=== PATIENT | male | born 1995 | race African-American/Black ===

== ENCOUNTER 2016-05-28 11:44 | Emergency (ER) | payer SELFPAY ==
[~2016-05-28] VITALS: Ht 182.9 cm; Wt 72.6 kg
[~2016-05-28 11:44] MED LIST: NORCO 5-325 TA1 EAC1 ORAL; PROMETHAZINE-C118 M1 ORAL; ZITHROMAX250 MG ORAL
[2016-05-28] MEDS ORDERED: NKM (11:52)
--- NOTE | 2016-05-28 12:24 | Emergency Room Report ---
History of Present Illness General Chief Complaint: Upper Respiratory Illness Source: Patient Present Illness HPI 20 YO Male presents to the ED c/o dry cough and intermittent wheezing x 1 week , denies fevers, chills. has hx of asthma. reports few episodes of phlegm in the throat, denies nasal congestion or rhinorrhea. He is up-to-date with vaccinations he denies ill contacts or recent travel. Patient denies abdominal pain, rashes, neck pain or stiffness. Denies numbness tingling or loss of sensation or gross motor movements of the extremities, incontinence of bowel or bladder. Denies CP, Palpitations, LOC, AMS, dizziness, Changes in Vision, Sensation, paresthesias, or a sudden severe headache. Allergies: Coded Allergies: No Known Allergies (Unverified , 05/16/15) Patient History Past Medical History: see triage record Past Surgical History: none Pertinent Family History: none Immunizations: UTD Reviewed Nursing Documentation: PMH: Agreed, PSxH: Agreed Nursing Documentation-PMH Past Medical History: No Stated History Review of Systems All Other Systems: negative except mentioned in HPI Physical Exam Vital Signs Date Time Temp Pulse Resp B/P Pulse Ox O2 Delivery O2 Flow Rate FiO2 05/28/16 11:49 98.8 88 18 134/78 98 Room Air Sp02 EP Interpretation: reviewed, normal General Appearance: no apparent distress, alert, GCS 15, non-toxic Head: normocephalic, atraumatic Eyes: bilateral eye PERRL, bilateral eye normal inspection ENT: hearing grossly normal, normal pharynx, no angioedema, normal voice, TMs + canals normal, uvula midline Neck: full range of motion, supple/symm/no masses Respiratory: chest non-tender, no respiratory distress, speaking full sentences , wheezing - scant expiratory wheezes at the end of inhalation bilaterally Cardiovascular #1: regular rate, rhythm, no edema Musculoskeletal: back normal, gait/station normal, normal range of motion, non- tender Neurologic: alert, oriented x3, responsive, motor strength/tone normal, sensory intact, speech normal Psychiatric: judgement/insight normal, memory normal, mood/affect normal Skin: normal color, no rash, warm/dry, well hydrated Medical Decision Making PA Attestation Dr. Kaufman is my supervising Physician whom patient management has been discussed with. Diagnostic Impression: Primary Impression: Bronchitis ER Course Pt. presents to the ED c/o dry cough and intermittent wheezing x 1 week , denies fevers, chills. has hx of asthma. reports few episodes of phlegm in the throat, denies nasal congestion or rhinorrhea. Ddx considered but are not limited to URI, pneumonia, PE, strep pharyngitis, meningitis. Vital signs: Pt.is afebrile VS are WNL H&PE are most consistent with bronchitis. ORDERS: none required at this time, the diagnosis is clinical ED INTERVENTIONS: None required at this time. DISCHARGE: At this time pt. is stable for d/c to home. Will provide printed patient care instructions, and any necessary prescriptions. Care plan and follow up instructions have been discussed with the patient prior to discharge. Last Vital Signs Date Time Temp Pulse Resp B/P Pulse Ox O2 Delivery O2 Flow Rate FiO2 05/28/16 11:56 88 18 Room Air 05/28/16 11:49 98.8 134/78 98 Disposition: HOME, SELF-CARE Condition: Stable Scripts Guaifenesin (Guaifenesin) 1,200 Mg Tab.er.12h 1200 MG PO BID for 5 Days, #10 TAB Prov: Erin Sharma 05/28/16 D-Methorphan Hb/Prometh Hcl* (PROMETHAZINE-DM SYRUP*) 118 Ml Syrup 5 ML ORAL Q6H Y for For Cough, #118 ML 0 Refills Prov: Erin Sharma 05/28/16 Albuterol Sulfate* (ALBUTEROL SULFATE MDI*) 8.5 Gm Hfa.aer.ad 2 PUFF INH Q3H, #1 INH 1 Refill Prov: Erin Sharma 05/28/16 Referrals: NOT CHOSEN IPA/,REFERRING (PCP) Patient Instructions: Acute Bronchitis, [id number] Additional Instructions: Take medications as directed. Follow up with PCP in 3-5 days Return sooner to ED if new symptoms occur, or current symptoms become worse. Do not drink alcohol, drive, or operate heavy machinery while taking cough syrup as this may cause drowsiness. - Please note that this Emergency Department Report was dictated using [employer] ambulatory technology software, occasionally this can lead to erroneous entry secondary to interpretation by the dictation equipment. Erin Sharma May 28, 2016 12:24
[2016-05-28] MEDS ORDERED: ALBUTEROL SULF8.5 GM INH (12:27)
[2016-05-28] MEDS ORDERED: GUAIFENESIN1200 MG PO (12:27)
[2016-05-28] MEDS ORDERED: PROMETHAZINE-D118 ML ORAL (12:27)
[2016-05-28 12:34] VITALS: BP 134/78
== END 2016-05-28 12:35 | disposition home or self-care (01) ==
LOC: EMR 12:16
DX: J20.9 Acute bronchitis, unspecified (principal); J45.909 Unspecified asthma, uncomplicated
CPT/HCPCS: 99284